=== PATIENT | female | born 1990 | race Caucasian/White ===

== ENCOUNTER 2023-03-07 19:48 | Emergency (ER) | payer OTHER ==
[~2023-03-07] VITALS: Ht 162.6 cm; Wt 68.0 kg
[~2023-03-07 19:48] MED LIST: AMOCLA875 PO; ESCI10 PO; HYDROXYZINE PAM25 MG PO; Macrobid 100 M100 MG PO; NAPR500 PO; OLAN5 PO; PRAM.125 PO; PRAMIPEXOLE DIHY1 M1 PO
[2023-03-07 20:02] VITALS: BP 148/114
[2023-04-02] MEDS ORDERED: [UNRECOGNIZED DRUG - CODE] PO (22:14)
[2023-05-10] MEDS ORDERED: QUET300 PO (16:17)
[2023-05-10] MEDS ORDERED: LEVE500 PO (16:17)
== END 2023-03-07 20:11 | disposition home or self-care (01) ==
LOC: ER 19:48
DX: Z76.0 Encounter for issue of repeat prescription (principal); F32.9 Major depressive disorder, single episode, unspecified; Z59.00 Homelessness unspecified; Z88.1 Allergy status to other antibiotic agents; Z79.899 Other long term (current) drug therapy
CPT/HCPCS: 99281

== ENCOUNTER 2023-03-14 13:39 | Inpatient (IN) | payer OTHER ==
[~2023-03-14] VITALS: Ht 162.6 cm; Wt 63.5 kg
[2023-03-14 19:00] LABS: BASOPHILS ABSOLUTE AUTO 0.04 K/mm3 (0.00-0.23); BASOPHILS PERCENT AUTO 0 % (0-2); EOSINOPHILS ABSOLUTE AUTO 0.05 K/mm3 (0.00-0.68); EOSINOPHILS PERCENT AUTO 1 % (0-6); Hematocrit 42.1 % (33.0-51.0); Hemoglobin 14.2 g/dL (11.5-16.0); IMMATURE GRAN ABSOLUTE AUTO 0.02 K/mm3 (0.00-0.10); IMMATURE GRAN PERCENT AUTO 0 % (0-1); LYMPHOCYTES ABSOLUTE AUTO 1.66 K/mm3 (0.84-5.20); LYMPHOCYTES PERCENT AUTO 18 % (21-46); MONOCYTES ABSOLUTE AUTO 0.69 K/mm3 (0.16-1.47); MONOCYTES PERCENT AUTO 7 % (4-13); Mean Corpuscular HGB 29.3 pg (26.0-34.0); Mean Corpuscular HGB Conc 33.7 g/dL (31.5-36.5); Mean Corpuscular Volume 87 fL (80-100); Mean Platelet Volume 10.4 fL (9.1-12.4); NEUTROPHILS ABSOLUTE AUTO 6.95 K/mm3 (1.96-9.15); NEUTROPHILS PERCENT AUTO 74 % (41-73); Platelet Count 215 K/mm3 (150-400); RDW Coefficient Variation 13.9 % (11.7-14.2); RDW Standard Deviation 44.7 fL (35.1-46.3); Red Blood Cell Count 4.85 M/mm3 (3.80-5.20); White Blood Cell Count 9.41 K/mm3 (4.00-11.30)
[2023-03-14 19:19] LABS: Alanine Aminotransfer (ALT/SGP 31 U/L (12-78); Albumin, Blood 3.6 g/dL (3.4-5.0); Alk Phos 65 U/L (50-136); Anion Gap 9 mmol/L (6-16); Aspartate Aminotrans (AST/SGOT 41 U/L (12-37); Bilirubin, Total 1.3 mg/dL (0.1-1.0); Blood Urea Nitrogen 9 mg/dL (8-24); Bun/Creatinine Ratio 15.4 (12.0-20.0); CO2, Blood 27 mmol/L (21-32); Chloride, Blood 103 mmol/L (98-108); Creatinine, Blood 0.59 mg/dL (0.40-1.00); Globulin, Blood 3.6 g/dL (2.2-4.0); Glomerular Filtration Rate 70 (60-); Glucose, Blood 81 mg/dL (70-99); Potassium, Blood 3.2 mmol/L (3.5-5.5); Sodium, Blood 139 mmol/L (136-145); Total Protein, Blood 7.2 g/dL (6.4-8.2)
[2023-03-14 20:06] LABS: U Amphetamine Screen Not Detected; U Barbituate Screen Not Detected; U Benzodiazapine Screen Not Detected; U Buprenorphine Screen Not Detected; U Cannabinoids Screen Not Detected; U Cocaine Screen Not Detected; U Methadone Screen Not Detected; U Methamphetamine Screen Not Detected; U Opiates Screen Not Detected; U Oxycodone Screen Not Detected; U Phencyclidine Screen Not Detected; U Propoxyphene Screen Not Detected
[2023-03-14 21:15] LABS: Ethanol (Alcohol), Blood, Med <3 mg/dL
[2023-03-14 22:30] LABS: Source, Urine Foley catheter
[2023-03-14 22:33] LABS: Bilirubin, Urine Neg (Neg); Blood, Urine Neg (Neg); Glucose Qualitative, Urine Neg (Neg); Ketones, Urine 3+ (Neg); Leukocyte Esterase, Urine Neg (Neg); Nitrite, Urine Neg (Neg); Protein, Urine Neg (Neg); Urobilinogen, Urine NORM (Normal); pH, Urine 6.5 (5.0-8.0)
[2023-03-14 22:51] LABS: Bicarbonate Venous 25.3 mmol/L (24.0-30.0); PCO2 Venous 39.2 mmHg (38-42); pH Blood Venous 7.42 (7.34-7.37)
--- NOTE | 2023-03-14 22:52 | NUR ---
PATIENT ARRIVED TO ICU 13 VIA GURNEY WITH RT AND PORTABLE VENT. PATIENT TRANSFER TO ICU BED WITH SLIDER SHEET, AND PLACED ON ICU MONITORS. ETT PLACED TO VENT BY RT AC/VC 14, TV 400, PEEP 5, FIO2 35% SUCTIONING CLEAR ORAL AND ETT SECRETIONS. BED BATH DONE. OG PLACED TO LIS DRAINING CLEAR SECRETIONS. WITH SLIGHT STIMULI PATIENT HAVING RHYTHMIC MOVEMENTS TO HER ARMS AND LEGS APPEARS, HOLDING EXTREMITIES TIGHTLY FLEXED WITH FULL BODY TREMOR OR SHIVER. PATIENT KEEPING EYES CLOSED. KENDRICK, BUT BOTH EYES HAVING ROVING EYE MOVEMENT. KEPPRA AND ATIVAN ORDERS OBTAINED.
[2023-03-14 23:03] LABS: Appearance, Urine Clear (Clear); Color, Urine Pale Yellow (P-Yellow)
[2023-03-14 23:05] LABS: International Normalized Ratio 1.13; Prothrombin Time Results 11.8 Sec (9.7-11.5)
[2023-03-14 23:14] LABS: Acetaminophen, Random <2.0 ug/mL (10.0-30.0); Magnesium, Blood 2.1 mg/dL (1.6-2.4); Salicylate <1.7 mg/dL (2.8-20.0)
[2023-03-14 23:15] VITALS: BP 139/97
[2023-03-14 23:30] VITALS: BP 130/91
[2023-03-14 23:45] VITALS: BP 126/87
[2023-03-15] VITALS (69 sets, daily range): BP systolic 93–144; BP diastolic 60–113
[2023-03-15 03:29] LABS: BASOPHILS ABSOLUTE AUTO 0.04 K/mm3 (0.00-0.23); BASOPHILS PERCENT AUTO 0 % (0-2); EOSINOPHILS ABSOLUTE AUTO 0.08 K/mm3 (0.00-0.68); EOSINOPHILS PERCENT AUTO 1 % (0-6); Hematocrit 37.2 % (33.0-51.0); Hemoglobin 12.6 g/dL (11.5-16.0); IMMATURE GRAN ABSOLUTE AUTO 0.03 K/mm3 (0.00-0.10); IMMATURE GRAN PERCENT AUTO 0 % (0-1); LYMPHOCYTES ABSOLUTE AUTO 2.13 K/mm3 (0.84-5.20); LYMPHOCYTES PERCENT AUTO 19 % (21-46); MONOCYTES ABSOLUTE AUTO 1.07 K/mm3 (0.16-1.47); MONOCYTES PERCENT AUTO 9 % (4-13); Mean Corpuscular HGB 29.4 pg (26.0-34.0); Mean Corpuscular HGB Conc 33.9 g/dL (31.5-36.5); Mean Corpuscular Volume 87 fL (80-100); Mean Platelet Volume 10.1 fL (9.1-12.4); NEUTROPHILS ABSOLUTE AUTO 8.02 K/mm3 (1.96-9.15); NEUTROPHILS PERCENT AUTO 71 % (41-73); Platelet Count 194 K/mm3 (150-400); RDW Coefficient Variation 14.3 % (11.7-14.2); RDW Standard Deviation 45.1 fL (35.1-46.3); Red Blood Cell Count 4.29 M/mm3 (3.80-5.20); White Blood Cell Count 11.37 K/mm3 (4.00-11.30)
[2023-03-15 03:57] LABS: Albumin/Globulin Ratio 1.1 (0.8-1.8); Bilirubin, Total 1.2 mg/dL (0.1-1.0); Bun/Creatinine Ratio 12.7 (12.0-20.0); Calcium, Blood 8.4 mg/dL (8.5-10.1); Creatinine, Blood 0.63 mg/dL (0.40-1.00); Globulin, Blood 2.8 g/dL (2.2-4.0); Potassium, Blood 3.6 mmol/L (3.5-5.5); Total Protein, Blood 5.8 g/dL (6.4-8.2)
--- NOTE | 2023-03-15 05:35 | NUR ---
SUMMARY PATIENT REMAINS INTUBATED AND SEDATED WITH PROPOFOL 45 MCG, PATIENT CONTINUES TO HAVE SHIVERING/TREMOR AND STIFFENING UP OF EXTREMITIES WITH SLIGHT STIMULI. WHEN CALM EYES NO LONGER ROVING. ATIVAN 2MG GIVEN TWICE WITH GOOD RESULTS. VENT SETTINGS REMAIN UNCHANGED AC/VC 14, TV 400, PEEP 5, FIO2 35%. OG REMAINS IN PLACE DRAINING SMALL AMT OF CLEAR SECRETIONS.
--- NOTE | 2023-03-15 10:03 | NUR ---
SEDATION VACATION. 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 PLACED BACK ON PROPOFOL PER DR. WALSH AND WANTS TO GET EEG TODAY.
--- NOTE | 2023-03-15 12:25 | NUR ---
C COLLAR PLACED PER DR. WALSH
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
[2023-03-16] VITALS (9 sets, daily range): BP systolic 95–119; BP diastolic 55–76
[2023-03-16 04:42] LABS: Calcium, Blood 8.2 mg/dL (8.5-10.1); Creatinine, Blood 0.67 mg/dL (0.40-1.00); Magnesium, Blood 2.1 mg/dL (1.6-2.4); Phosphorus, Blood 3.8 mg/dL (2.5-4.9); Potassium, Blood 3.7 mmol/L (3.5-5.5)
--- NOTE | 2023-03-16 06:30 | NUR ---
SUMMARY PATIENT SLEEPING T/O NIGHT, AWAKENS WITH SLIGHT STIMULI. SPEAKING WITH SOFT VOICE. CONTINUES TO HAVE DIFFICULTY REMEMBERING WHAT HAS HAPPENED. PATIENT BECOMING TEARFUL AT TIMES. CONTINUES ON RA WITH BIOX HIGH 90'S. VSS T/O NIGHT. UP TO BSC WITH MIN ASSIST VOIDING 900 CC OF BRIDGETTE URINE. GENERALIZED WEAKNESS WHEN UP, SLIGHTLY UNSTEADY. ICE PACK TO RIGHT EYE SEVERAL TIMES T/O NIGHT TO HELP WITH SWELLING.
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
--- NOTE | 2023-03-16 17:20 | NUR ---
BPA CALLED. NO ANSWER AT THIS TIME.
--- NOTE | 2023-03-16 17:33 | NUR ---
BPA CALLED. BPA OFFICE STAFF STATED THEY WOULD DISPATCH ADVOCATE TO THE HOSPIAL TO SEE PATIENT AT THIS TIME.
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
--- NOTE | 2023-03-16 20:00 | NUR ---
ASSESSMENT/ASSUMED CARE PT RESTING QUIETLY IN BED. ANSWERING QUESTIONS APPROP. DENIES PAIN AT THIS TIME. LUNGS CLEAR ON ROOMAIR. RESP EVEN AND NONLABORED. DENIES SOB OR COUGH. HEART RATE REGULAR AND BP STABLE. MAEW. BT+ ABD SOFT AND NONTENDER. DENIES N/V. SCRATCHES NOTED TO BILAT HANDS AND WRISTS. MULTIPLE SCRAPES. RED RASH TO ABD, BOTTOM AND BILAT THIGHS BOTH FRONT AND BACK. CALAMINE APPLIED FOR PT COMFORT DUE TO ITCHING RASH. AVINGER MARS QUINONES FROM [facility] AND [facility] INTO SEE PT. REPORT ON CHART.
[2023-03-17 03:30] VITALS: BP 116/76
--- NOTE | 2023-03-17 03:35 | NUR ---
PT SLEEPING, AWAKENS EASILY. DENIES PAIN. PT STATES,"THANK YOU FOR ALL YOUR HELP. YOU HAVE MADE ME FEEL SAFE TONIGHT, I HAVE BEEN ABLE TO SLEEP SO WELL'. VSS. LABS DRAWN
[2023-03-17 04:49] LABS: BASOPHILS ABSOLUTE AUTO 0.02 K/mm3 (0.00-0.23); BASOPHILS PERCENT AUTO 0 % (0-2); EOSINOPHILS PERCENT AUTO 4 % (0-6); Hematocrit 36.3 % (33.0-51.0); IMMATURE GRAN ABSOLUTE AUTO 0.01 K/mm3 (0.00-0.10); IMMATURE GRAN PERCENT AUTO 0 % (0-1); LYMPHOCYTES ABSOLUTE AUTO 1.64 K/mm3 (0.84-5.20); LYMPHOCYTES PERCENT AUTO 29 % (21-46); MONOCYTES PERCENT AUTO 13 % (4-13); Mean Corpuscular HGB 29.3 pg (26.0-34.0); Mean Corpuscular HGB Conc 33.1 g/dL (31.5-36.5); Mean Corpuscular Volume 89 fL (80-100); Mean Platelet Volume 10.5 fL (9.1-12.4); NEUTROPHILS ABSOLUTE AUTO 3.02 K/mm3 (1.96-9.15); NEUTROPHILS PERCENT AUTO 54 % (41-73); Platelet Count 202 K/mm3 (150-400); RDW Coefficient Variation 14.6 % (11.7-14.2); RDW Standard Deviation 46.8 fL (35.1-46.3); White Blood Cell Count 5.59 K/mm3 (4.00-11.30)
[2023-03-17 04:57] LABS: Magnesium, Blood 2.2 mg/dL (1.6-2.4)
[2023-03-17 04:58] LABS: Bun/Creatinine Ratio 11.4 (12.0-20.0); Calcium, Blood 8.7 mg/dL (8.5-10.1); Creatinine, Blood 0.7 mg/dL (0.40-1.00); Phosphorus, Blood 3.7 mg/dL (2.5-4.9); Potassium, Blood 3.6 mmol/L (3.5-5.5)
--- NOTE | 2023-03-17 05:32 | NUR ---
SHIFT SUMMARY PT RESTING QUIETLY DURING THE NIGHT. VSS. MOVING AND TURNING SELF IN BED. DENIES PAIN OR DISCOMFORT. NO CHANGE TO RASH DURING THE NIGHT. CALAZIME APPLIED WHEN NEEDED (AT BEDSIDE). REPORT TO ON COMING NURSE
[2023-03-17 09:04] VITALS: BP 124/83
[2023-03-17 11:39] VITALS: BP 116/68
--- NOTE | 2023-03-17 12:22 | NUR ---
REASSESSMENT PT HAS BEEN ALERT AND ORIENTED, BUT VERY SOFT SPOKEN AND WITHDRAWN THROUGHOUT THE MORNING. SHE IS GETTING UP AND WALKING AROUND THE ROOM INDEPENDENTLY. OINTMENT APPLIED TO THE RASH ON HER THIGHS AND LOWER ABDOMEN. REDNESS HAS NOT SPREAD OUTSIDE THE MARKINGS. BENADRYL AND PEPCID GIVEN TO HELP WITH THE ITCHING. LUNGS ARE CLEAR, RA. HRR, BP STABLE. EATING WELL. CONTINUING TO MONITOR
[2023-03-17] MEDS ORDERED: BENADRYL25 MG PO (16:51)
[2023-03-17] MEDS ORDERED: DULCOLAX400 MG/5 M PO (16:52)
[2023-03-17] MEDS ORDERED: FAMO20 PO (16:52)
[2023-03-17] MEDS ORDERED: [UNRECOGNIZED DRUG - OTHER] (16:53)
[2023-03-17] MEDS ORDERED: QUET300 PO (16:54)
[2023-03-17] MEDS ORDERED: Keppra750 MG PO (16:54)
--- NOTE | 2023-03-17 17:32 | NUR ---
DISCHARGE SPOKE WITH DR. NICHOLSON AND PSYCHIATRIST CLEARED PT TO DISCHARGE LONG SHE HAD A SAFE PLACE TO DISCHARGE. NOTIFIED CARE MANAGEMENT AND THEY SAID PT WILL HAVE TO GO TO THE [facility] OR [facility]. SPOKE TO PT AND SHE SAID SAFE GOING TO EITHER. CALLED THE [facility] AND THEY HAD NO FEMALE BEDS AVAILABLE. [facility] HAS 2 BEDS AVAILABLE, BUT IT IS FIRST COME, FIRST SERVE BASIS. SPOKE TO PT AND SHE IS OK WITH TAKING A TAXI TO [facility] TO TRY AND GET ONE OF THOSE BEDS. PT'S MEDS CALLED TO [facility] AND THEY SAID PT'S SEROQUEL CAN BE READY TONIGHT AND THE REST WILL BE READY TOMORROW. PT PROVIDED WITH CLOTHES FROM [employer] ALL OF HERS WERE CUT OFF UPON ADMISSION. PT GIVEN DC INSTRUCITONS AND MEDICATIONS REVIEWED. ENCOURAGED PT TO GET IN CONTACT WITH [facility] AND FOR HELP GETTING SET UP WITH A PCP. TAXI CALLED AND PT DC'D VIA TAXI. TAXI WAS ASKED TO STOP AT [facility] SO PT COULD ROUGH PATCHER HER SEROQUEL FOR TONIGHT.
[2023-03-18 01:08] LABS: HIV AB/P24 AG SCREEN Non Reactive (Non Reactive)
[2023-03-21 13:08] LABS: CHLAMYDIA BY NAA Negative (Negative); GONOCOCCUS BY NAA Negative (Negative); TRICH VAG BY NAA Negative (Negative)
== END 2023-03-17 17:29 | disposition home or self-care (01) | DRG 91 ==
LOC: ER 13:39 → ICUE 22:21 → EDBD 22:21 → ICUE 23:15
PROVIDERS: Emergency Medicine; Family Medicine; Student in an Organized Health Care Education/Training Program; ADMIT Internal Medicine
PROC: 5A1935Z Respiratory Ventilation, Less than 24 Consecutive Hours (ICD-10-PCS; principal; 2023-03-14)
PROC: 0BH17EZ Insertion of Endotracheal Airway into Trachea, Via Natural or Artificial Opening (ICD-10-PCS; 2023-03-14)
PROC: 5A09357 Assistance with Respiratory Ventilation, Less than 24 Consecutive Hours, Continuous Positive Airway Pressure (ICD-10-PCS; 2023-03-15)
PROC: 4A00X4Z Measurement of Central Nervous Electrical Activity, External Approach (ICD-10-PCS; 2023-03-15)
DX: G92.8 Other toxic encephalopathy (principal); J96.90 Respiratory failure, unspecified, unspecified whether with hypoxia or hypercapnia; L03.811 Cellulitis of head [any part, except face]; T74.21XA Adult sexual abuse, confirmed, initial encounter; Z59.00 Homelessness unspecified; F31.32 Bipolar disorder, current episode depressed, moderate; S00.03XA Contusion of scalp, initial encounter; Y08.89XA Assault by other specified means, initial encounter; E87.6 Hypokalemia; L50.9 Urticaria, unspecified; R56.9 Unspecified convulsions; Z88.1 Allergy status to other antibiotic agents
CPT/HCPCS: 31500; 36415; 51702; 70450; 71045; 71250; 72125; 80048; 80053; 81003; 82803; 83605; 83735; 83880; 84100; 84145; 84703; 85025; 85610; 87389; 87491; 87591; 87661; 93005; 93010; 94002; 94003; 94760; 94762; 95819; 96360-59; 96361-59; 97116; 97162; 97166; 97530; 97535; 99291-25; 99292; A9270; C9113; G0480; J0690; J1650; J1953; J2060; J2371; J2704; J3411; J3480; J7030; J7050; P9612

== ENCOUNTER 2023-03-29 23:06 | Emergency (ER) | payer OTHER ==
[~2023-03-29] VITALS: Ht 162.6 cm; Wt 54.4 kg
[~2023-03-29 23:06] MED LIST changes: -AMOCLA875 PO; +BENADRYL25 MG PO; +DULCOLAX400 MG/5 M PO; -ESCI10 PO; +FAMO20 PO; -HYDROXYZINE PAM25 MG PO; +Keppra750 MG PO; -Macrobid 100 M100 MG PO; -NAPR500 PO; -OLAN5 PO; -PRAM.125 PO; -PRAMIPEXOLE DIHY1 M1 PO; +QUET300 PO; +[UNRECOGNIZED DRUG - OTHER]
[2023-03-30 00:20] VITALS: BP 138/90
[2023-03-30] MEDS ORDERED: Seroquel Xr300 MG PO (00:27)
== END 2023-03-30 01:12 | disposition home or self-care (01) ==
LOC: ER 23:06
DX: Z76.0 Encounter for issue of repeat prescription (principal)
CPT/HCPCS: 99281; A9270

== ENCOUNTER 2023-05-28 06:27 | Observation (INO) | payer OTHER ==
[~2023-05-28] VITALS: Ht 160 cm; Wt 52.2 kg
[~2023-05-28 06:27] MED LIST changes: +AMOCLA875 PO; +ESCI10 PO; +HYDROXYZINE PAM25 MG PO; +LEVE500 PO; +Macrobid 100 M100 MG PO; +NAPR500 PO; +OLAN5 PO; +PRAM.125 PO; +PRAMIPEXOLE DIHY1 M1 PO; +Seroquel Xr300 MG PO; +[UNRECOGNIZED DRUG - CODE] PO
[2023-05-28 10:10] LABS: BASOPHILS ABSOLUTE AUTO 0.03 K/mm3 (0.00-0.23); BASOPHILS PERCENT AUTO 0 % (0-2); EOSINOPHILS ABSOLUTE AUTO 0.25 K/mm3 (0.00-0.68); EOSINOPHILS PERCENT AUTO 3 % (0-6); Hematocrit 42.4 % (33.0-51.0); Hemoglobin 14.2 g/dL (11.5-16.0); IMMATURE GRAN ABSOLUTE AUTO 0.02 K/mm3 (0.00-0.10); IMMATURE GRAN PERCENT AUTO 0 % (0-1); LYMPHOCYTES ABSOLUTE AUTO 2.01 K/mm3 (0.84-5.20); LYMPHOCYTES PERCENT AUTO 26 % (21-46); MONOCYTES ABSOLUTE AUTO 0.68 K/mm3 (0.16-1.47); MONOCYTES PERCENT AUTO 9 % (4-13); Mean Corpuscular HGB Conc 33.5 g/dL (31.5-36.5); Mean Corpuscular Volume 90 fL (80-100); Mean Platelet Volume 9.8 fL (9.1-12.4); NEUTROPHILS ABSOLUTE AUTO 4.85 K/mm3 (1.96-9.15); NEUTROPHILS PERCENT AUTO 62 % (41-73); Platelet Count 242 K/mm3 (150-400); RDW Coefficient Variation 12.5 % (11.7-14.2); RDW Standard Deviation 41.4 fL (35.1-46.3); Red Blood Cell Count 4.73 M/mm3 (3.80-5.20); White Blood Cell Count 7.84 K/mm3 (4.00-11.30)
[2023-05-28 10:31] LABS: Acetaminophen, Random <2.0 ug/mL (10.0-30.0); Alanine Aminotransfer (ALT/SGP 21 U/L (12-78); Albumin, Blood 3.9 g/dL (3.4-5.0); Albumin/Globulin Ratio 1.1 (0.8-1.8); Alk Phos 96 U/L (50-136); Anion Gap 4 mmol/L (6-16); Aspartate Aminotrans (AST/SGOT 18 U/L (12-37); Bilirubin, Total 0.3 mg/dL (0.1-1.0); Blood Urea Nitrogen 11 mg/dL (8-24); Bun/Creatinine Ratio 16.3 (12.0-20.0); CO2, Blood 29 mmol/L (21-32); Calcium, Blood 8.8 mg/dL (8.5-10.1); Chloride, Blood 107 mmol/L (98-108); Creatinine, Blood 0.67 mg/dL (0.40-1.00); Ethanol (Alcohol), Blood, Med <3 mg/dL; Globulin, Blood 3.7 g/dL (2.2-4.0); Glomerular Filtration Rate 118 (60-); Glucose, Blood 84 mg/dL (70-99); Potassium, Blood 3.7 mmol/L (3.5-5.5); Salicylate <1.7 mg/dL (2.8-20.0); Sodium, Blood 140 mmol/L (136-145); Total Protein, Blood 7.6 g/dL (6.4-8.2)
[2023-05-28 11:09] LABS: Source, Urine Clean Catch
[2023-05-28 11:20] LABS: Bilirubin, Urine Neg (Neg); Blood, Urine 5+ (Neg); Glucose Qualitative, Urine Neg (Neg); Ketones, Urine 1+ (Neg); Leukocyte Esterase, Urine 1+ (Neg); Nitrite, Urine Neg (Neg); Protein, Urine Neg (Neg); Urobilinogen, Urine NORM (Normal)
[2023-05-28 11:33] LABS: Appearance, Urine Hazy (Clear); Color, Urine Yellow (P-Yellow)
[2023-05-28 11:35] LABS: White Blood Cells, Urine 0-2 /hpf (0-5)
[2023-05-28 11:36] LABS: Bacteria Mod /hpf; Mucus Light (0-Heavy); Squamous Epithelial Cells Few /hpf (Few)
[2023-05-28 11:45] LABS: U Amphetamine Screen Not Detected; U Barbituate Screen Not Detected; U Benzodiazapine Screen Not Detected; U Buprenorphine Screen Not Detected; U Cannabinoids Screen Not Detected; U Cocaine Screen Not Detected; U Methadone Screen Not Detected; U Methamphetamine Screen Not Detected; U Opiates Screen Not Detected; U Oxycodone Screen Not Detected; U Phencyclidine Screen Not Detected
[2023-06-02 07:57] VITALS: BP 120/81
== END 2023-06-02 12:41 ==
LOC: ER 06:27 → EOR 06:28
PROVIDERS: Student in an Organized Health Care Education/Training Program; ADMIT Emergency Medicine
DX: F31.2 Bipolar disorder, current episode manic severe with psychotic features (principal); Z88.1 Allergy status to other antibiotic agents; Z79.899 Other long term (current) drug therapy
CPT/HCPCS: 80053; 81001; 81025; 85025; 87086; 93005; 93010; 99285-25; A9270; G0378; G0480

== ENCOUNTER 2023-06-17 15:44 | Emergency (ER) | payer OTHER ==
[~2023-06-17] VITALS: Ht 170.2 cm; Wt 68.0 kg
[2023-06-17 15:57] VITALS: BP 141/96
== END 2023-06-17 17:31 | disposition home or self-care (01) ==
LOC: ER 15:44
DX: Z02.89 Encounter for other administrative examinations (principal); Z65.8 Other specified problems related to psychosocial circumstances; Z88.1 Allergy status to other antibiotic agents; Z79.899 Other long term (current) drug therapy
CPT/HCPCS: 99282

== ENCOUNTER 2023-06-19 00:01 | Emergency (ER) | payer OTHER ==
[~2023-06-19] VITALS: Ht 162.6 cm; Wt 62.0 kg
[2023-06-19 00:20] VITALS: BP 124/99
== END 2023-06-19 00:35 | disposition home or self-care (01) ==
LOC: ER 00:01
DX: Z00.8 Encounter for other general examination (principal); F41.9 Anxiety disorder, unspecified; Z65.8 Other specified problems related to psychosocial circumstances; Z88.1 Allergy status to other antibiotic agents; Z79.899 Other long term (current) drug therapy; Z59.00 Homelessness unspecified
CPT/HCPCS: 99282

== ENCOUNTER 2023-07-12 22:11 | Emergency (ER) | payer OTHER ==
[~2023-07-12] VITALS: Ht 167.6 cm; Wt 61.2 kg
[2023-07-12 22:39] VITALS: BP 134/104
[2023-07-12] MEDS ORDERED: QUET200 PO (23:56)
== END 2023-07-13 00:15 | disposition home or self-care (01) ==
LOC: ER 22:11
DX: Z76.0 Encounter for issue of repeat prescription (principal); F41.9 Anxiety disorder, unspecified; G47.00 Insomnia, unspecified; F32.A Depression, unspecified; Z79.899 Other long term (current) drug therapy; Z88.1 Allergy status to other antibiotic agents
CPT/HCPCS: 99281; A9270

== ENCOUNTER 2023-08-04 21:51 | Emergency (ER) | payer OTHER ==
[~2023-08-04] VITALS: Ht 170.2 cm; Wt 54.4 kg
[~2023-08-04 21:51] MED LIST changes: +QUET200 PO
[2023-08-04 22:09] VITALS: BP 182/82
== END 2023-08-04 22:26 | disposition home or self-care (01) ==
LOC: ER 21:51
DX: Z65.8 Other specified problems related to psychosocial circumstances (principal); Z88.1 Allergy status to other antibiotic agents; Z79.899 Other long term (current) drug therapy
CPT/HCPCS: 99282